=== PATIENT | female | born 1935 | race Caucasian/White ===

== ENCOUNTER 2017-10-19 21:03 | Emergency (ER) | payer MEDICARE ==
[2017-10-19] MEDS ORDERED: Ketorolac 30 MG/ML SDV IVPUSH ONE (21:07)
[2017-10-19] MEDS ORDERED: Sodium Chloride 0.9% 1,000 ML IV ONE (21:07)
[2017-10-19] MEDS ORDERED: Ondansetron 4 MG/2 ML SDV IVPUSH ONE (21:07)
--- NOTE | 2017-10-19 21:12 | EDM.PDOC ---
<Mae Coats - Last Filed: 10/19/17 23:34> ED HPI GENERAL MEDICAL PROBLEM - General Chief Complaint: Upper Extremity Injury/Pain Stated Complaint: DISLOCATED SHOULDER Time Seen by Provider: 10/19/17 21:07 - History of Present Illness INITIAL COMMENTS - FREE TEXT/NARRATIVE: This is Dr. Coats dictating an addendum note is having some care of this case at 10 PM. X-rays have been reviewed and the case was discussed with Dr. Mitchell who is her orthopedic surgeon on-call at 2230pm. Due to the patient's age reduction may be simple so I will try a small dose of morphine and attempt reduction. Procedure note: After the patient was notified of the procedure I just gave her 2 mg of morphine for pain and using traction is able to reduce the shoulder without complication. The patient was awake the entire time and interactive with us and had no complications. We will do a post reduction x-ray. Shoulder immobilizer was placed Post reduction x-ray shows reduction of the shoulder. I will refer her to Dr. Mitchell in the ortho clinic and advised her to wear the shoulder immobilizer until she is followed up. I will advise using ice to the area and over-the- counter pain meds. I will give her a few Tylenol with Codeine to use in case the pain is accelerated Impression: Right shoulder dislocation reduced - Related Data Allergies Allergy/AdvReac Type Severity Reaction Status Date / Time No Known Allergies Allergy Verified 10/19/17 21:12 Home Meds: Home Meds Apixaban [Eliquis] 0 mg PO BID 10/19/17 [History] Course - Vital Signs Last Recorded V/S: Last Vital Signs Temp 97.8 F 10/19/17 23:53 Pulse 73 10/19/17 23:53 Resp 17 10/19/17 23:53 BP 127/75 10/19/17 23:53 Pulse Ox 98 10/19/17 23:53 - Orders/Labs/Meds Orders: Active Orders 24 hr Category Date Time Status EKG Documentation Completion [RC] STAT Care 10/19/17 21:07 Active Chest 1V Frontal [CR] Stat Exams 10/19/17 21:07 Taken Shoulder 1V Rt [CR] Stat Exams 10/19/17 23:03 Taken Shoulder Comp Rt [CR] Stat Exams 10/19/17 21:06 Taken DME for Discharge [COMM] Stat Oth 10/19/17 23:09 Ordered Labs: Laboratory Tests 10/19/17 10/19/17 Range/Units 21:35 21:35 WBC 11.99 H (4.0-11.0) K/uL RBC 4.39 (4.30-5.90) M/uL Hgb 15.2 (12.0-16.0) g/dL Hct 43.3 (36.0-46.0) % MCV 98.6 H (80.0-98.0) fL MCH 34.6 H (27.0-32.0) pg MCHC 35.1 (31.0-37.0) g/dL RDW Std Deviation 47.8 (28.0-62.0) fl RDW Coeff of Jak 13 (11.0-15.0) % Plt Count 160 (150-400) K/uL MPV 10.30 (7.40-12.00) fL Neut % (Auto) 24.1 L (48.0-80.0) % Lymph % (Auto) 68.5 H (16.0-40.0) % Camas % (Auto) 6.3 (0.0-15.0) % Eos % (Auto) 0.8 (0.0-7.0) % Baso % (Auto) 0.3 (0.0-1.5) % Neut # (Auto) 2.9 (1.4-5.7) K/uL Lymph # (Auto) 8.2 H (0.6-2.4) K/uL Camas # (Auto) 0.8 (0.0-0.8) K/uL Eos # (Auto) 0.1 (0.0-0.7) K/uL Baso # (Auto) 0.0 (0.0-0.1) K/uL Nucleated RBC % 0.0 /100WBC Nucleated RBCs # 0 K/uL Sodium 139 (136-145) mmol/L Potassium 3.9 (3.5-5.1) mmol/L Chloride 100 (98-107) mmol/L Carbon Dioxide 28.0 (21.0-32.0) mmol/L BUN 19 H (7.0-18.0) mg/dL Creatinine 1.1 H (0.6-1.0) mg/dL Est Cr Clr Drug Dosing TNP Estimated GFR (MDRD) 47.3 ml/min Glucose 131 H (74-106) mg/dL Calcium 10.1 (8.5-10.1) mg/dL Total Bilirubin 0.5 (0.2-1.0) mg/dL AST 26 (15-37) IU/L ALT 31 (14-63) IU/L Alkaline Phosphatase 77 (46-116) U/L Troponin I < 0.050 (0.000-0.056) ng/mL Total Protein 7.5 (6.4-8.2) g/dL Albumin 3.7 (3.4-5.0) g/dL Globulin 3.8 H (2.0-3.5) g/dL Albumin/Globulin Ratio 1.0 L (1.3-2.8) Meds: Medications Discontinued Medications Generic Name Dose Route Start Last Admin Trade Name Freq PRN Reason Stop Dose Admin Sodium Chloride 1,000 mls @ 999 mls/hr 10/19/17 21:07 10/19/17 21:34 Normal Saline IV 10/19/17 22:07 999 mls/hr STAT ONE Administration Ketorolac Tromethamine 30 mg 10/19/17 21:07 10/19/17 21:35 Toradol IVPUSH 10/19/17 21:08 30 mg ONETIME ONE Administration Morphine Sulfate 2 mg 10/19/17 22:46 10/19/17 22:52 Morphine IVPUSH 10/19/17 22:47 2 mg ONETIME ONE Administration Ondansetron HCl 4 mg 10/19/17 21:07 10/19/17 21:35 Zofran IVPUSH 10/19/17 21:08 4 mg ONETIME ONE Administration Departure - Departure Time of Disposition: 23:31 Disposition: Home, Self-Care 01 Condition: Good Clinical Impression: Anterior shoulder dislocation Qualifiers: Encounter type: initial encounter Laterality: right Qualified Code(s): S43.014A - Anterior dislocation of right humerus, initial encounter - Discharge Information Instructions: Shoulder Dislocation Referrals: PCP,Unknown [Primary Care Provider] - Forms: ED Department Discharge Additional Instructions: The following information is given to patients seen in the emergency department who are being discharged to home. This information is to outline your options for follow-up care. We provide all patients seen in our emergency department with a follow-up referral. The need for follow-up, as well as the timing and circumstances, are variable depending upon the specifics of your emergency department visit. If you don't have a primary care physician on staff, we will provide you with a referral. We always advise you to contact your personal physician following an emergency department visit to inform them of the circumstance of the visit and for follow-up with them and/or the need for any referrals to a consulting specialist. The emergency department will also refer you to a specialist when appropriate. This referral assures that you have the opportunity for followup care with a specialist. All of these measure are taken in an effort to provide you with optimal care, which includes your followup. Under all circumstances we always encourage you to contact your private physician who remains a resource for coordinating your care. When calling for followup care, please make the office aware that this follow-up is from your recent emergency room visit. If for any reason you are refused follow-up, please contact the [facility] emergency department at and ask to speak to the emergency department charge nurse. [facility]--[place] [address] Please wear immobilizer until you're followed up in the ortho clinic. Place ice to the anterior part of your shoulder to reduce any swelling and we go the hand and move your fingers as much as possible to prevent swelling. Please use over- the-counter medications such as ibuprofen or Tylenol for pain and take the Tylenol with Codeine if you need it given to you via [employer] for any severe pain. Although the prescription says to take 1 pill every 4-6 hours please only take 1/2-1 pill every 6-8 hours if needed. Please only take that medication when you are at home. Call the clinic in the morning for a follow-up appointment and return to ER as needed and as discussed - My Orders Last 24 Hours: My Active Orders 10/19/17 21:06 Shoulder Comp Rt [CR] Stat 10/19/17 21:07 EKG Documentation Completion [RC] STAT Chest 1V Frontal [CR] Stat - Assessment/Plan Last 24 Hours: My Active Orders 10/19/17 21:06 Shoulder Comp Rt [CR] Stat 10/19/17 21:07 EKG Documentation Completion [RC] STAT Chest 1V Frontal [CR] Stat <Prieto Whitley E - Last Filed: 10/20/17 15:56> ED HPI GENERAL MEDICAL PROBLEM - General Source of Information: Reports: Patient History Limitations: Reports: No Limitations - History of Present Illness INITIAL COMMENTS - FREE TEXT/NARRATIVE: HISTORY AND PHYSICAL: History of present illness: Patient is an 82-year-old female who presents to the emergency room today with complaints of right shoulder pain after a fall. She states she was exiting [facility] when the pavement was uneven and had fallen against a glass door hitting her right shoulder. She denies hitting her head or any loss of consciousness. EMS was called to evaluate and transport patient to the emergency room. Patient has her arm in a position of comfort which is lifted up towards her side (as if she were to throw a baseball). She denies any vertigo, chills, chest pain, shortness of breath, abdominal pain, nausea, vomiting, diarrhea or constipation. Denies any headache or change in vision. Review of systems: As per history of present illness and below otherwise all systems reviewed and negative. Past medical history: As per history of present illness and as reviewed below otherwise noncontributory. Surgical history: As per history of present illness and as reviewed below otherwise noncontributory. Social history: No reported history of drug or alcohol abuse. Family history: As per history of present illness and as reviewed below otherwise noncontributory. Physical exam: General: Well-developed and well-nourished 82-year-old female. Alert and oriented. Nontoxic appearing and in no acute distress. HEENT: Atraumatic, normocephalic, pupils equal and reactive bilaterally, negative for conjunctival pallor or scleral icterus, mucous membranes moist, throat clear, neck supple, nontender, trachea midline. No drooling or trismus noted. No meningeal signs Lungs: Clear to auscultation, breath sounds equal bilaterally, chest nontender. Heart: S1S2, regular rate and rhythm without overt murmur Abdomen: Soft, nondistended, nontender. Negative for masses or hepatosplenomegaly. Negative for costovertebral tenderness. Pelvis: Stable nontender. Genitourinary: Deferred. Rectal: Deferred. Skin: Mildly diaphoretic. Otherwise intact, warm, dry. No lesions or rashes noted. Extremities: Unable to fully assess a range of motion of the right shoulder as the patient has pain with passive range of motion. She does have strong radial pulse. Capillary refill is less than 3 seconds. With palpation she has no tenderness to the hand, wrist, forearm, elbow or distal humerus. Does have tenderness with palpation to the proximal humerus and shoulder. Patient has her arm in a position of comfort which is lifted up towards her side (as if she were to throw a baseball). No clavicle deformities noted nor tenderness with palpation. Able to move all other extremities without difficulty or deficits. Neurovascular unremarkable. Neuro: Awake, alert, oriented. Cranial nerves II through XII unremarkable. Cerebellum unremarkable. Motor and sensory unremarkable throughout. Exam nonfocal. Notes: Due to the patient's age and physical assessment, will obtain routine lab work along with x-ray. Diagnostics: CBC, CMP, EKG, chest x-ray, troponin, x-ray right shoulder Therapeutics: IV fluid, Zofran, Toradol Impression: Right shoulder injury Plan: Per Dr Coats. Definitive disposition and diagnosis as appropriate pending reevaluation and review of above. Onset: Today Duration: Minutes: Location: Reports: Upper Extremity, Right right shoulder Pain Score (Numeric/FACES): 8 Review of Systems - Review of Systems Review Of Systems: ROS reveals no pertinent complaints other than HPI. ED EXAM, GENERAL - Physical Exam Exam: See Below (See dictation) Course - Vital Signs Last Recorded V/S: Last Vital Signs Temp 97.8 F 10/19/17 23:53 Pulse 73 10/19/17 23:53 Resp 17 10/19/17 23:53 BP 127/75 10/19/17 23:53 Pulse Ox 98 10/19/17 23:53 - Orders/Labs/Meds Labs: Laboratory Tests 10/19/17 10/19/17 Range/Units 21:35 21:35 WBC 11.99 H (4.0-11.0) K/uL RBC 4.39 (4.30-5.90) M/uL Hgb 15.2 (12.0-16.0) g/dL Hct 43.3 (36.0-46.0) % MCV 98.6 H (80.0-98.0) fL MCH 34.6 H (27.0-32.0) pg MCHC 35.1 (31.0-37.0) g/dL RDW Std Deviation 47.8 (28.0-62.0) fl RDW Coeff of Jak 13 (11.0-15.0) % Plt Count 160 (150-400) K/uL MPV 10.30 (7.40-12.00) fL Neut % (Auto) 24.1 L (48.0-80.0) % Lymph % (Auto) 68.5 H (16.0-40.0) % Camas % (Auto) 6.3 (0.0-15.0) % Eos % (Auto) 0.8 (0.0-7.0) % Baso % (Auto) 0.3 (0.0-1.5) % Neut # (Auto) 2.9 (1.4-5.7) K/uL Lymph # (Auto) 8.2 H (0.6-2.4) K/uL Camas # (Auto) 0.8 (0.0-0.8) K/uL Eos # (Auto) 0.1 (0.0-0.7) K/uL Baso # (Auto) 0.0 (0.0-0.1) K/uL Nucleated RBC % 0.0 /100WBC Nucleated RBCs # 0 K/uL Sodium 139 (136-145) mmol/L Potassium 3.9 (3.5-5.1) mmol/L Chloride 100 (98-107) mmol/L Carbon Dioxide 28.0 (21.0-32.0) mmol/L BUN 19 H (7.0-18.0) mg/dL Creatinine 1.1 H (0.6-1.0) mg/dL Est Cr Clr Drug Dosing TNP Estimated GFR (MDRD) 47.3 ml/min Glucose 131 H (74-106) mg/dL Calcium 10.1 (8.5-10.1) mg/dL Total Bilirubin 0.5 (0.2-1.0) mg/dL AST 26 (15-37) IU/L ALT 31 (14-63) IU/L Alkaline Phosphatase 77 (46-116) U/L Troponin I < 0.050 (0.000-0.056) ng/mL Total Protein 7.5 (6.4-8.2) g/dL Albumin 3.7 (3.4-5.0) g/dL Globulin 3.8 H (2.0-3.5) g/dL Albumin/Globulin Ratio 1.0 L (1.3-2.8) Meds: Medications Discontinued Medications Generic Name Dose Route Start Last Admin Trade Name Tongq PRN Reason Stop Dose Admin Sodium Chloride 1,000 mls @ 999 mls/hr 10/19/17 21:07 10/19/17 21:34 Normal Saline IV 10/19/17 22:07 999 mls/hr STAT ONE Administration Ketorolac Tromethamine 30 mg 10/19/17 21:07 10/19/17 21:35 Toradol IVPUSH 10/19/17 21:08 30 mg ONETIME ONE Administration Morphine Sulfate 2 mg 10/19/17 22:46 10/19/17 22:52 Morphine IVPUSH 10/19/17 22:47 2 mg ONETIME ONE Administration Ondansetron HCl 4 mg 10/19/17 21:07 10/19/17 21:35 Zofran IVPUSH 10/19/17 21:08 4 mg ONETIME ONE Administration
[2017-10-19 22:04] LABS: CHLORIDE,CL 100 mmol/L (98-107); SODIUM,NA 139 mmol/L (136-145)
[2017-10-19] MEDS ORDERED: Morphine 10 MG/ML Syringe IVPUSH ONE (22:46)
--- NOTE | 2017-10-21 12:39 | CR ---
EXAM DATE: 10/19/17 PATIENT'S AGE: 82 Patient: [facility] Facility: [place], [place] Site . Site : 1935 Study: XRay Chest [id number]/13/2018 10:27:09 PM Ordering Physician: Doctor Sue Final Report: INDICATION: Fall. COMPARISON: None. FINDINGS/IMPRESSION: Minimal linear atelectasis or scarring at the lateral right lung base. Lungs are otherwise clear and no acute intrathoracic abnormalities are demonstrated. Heart appears mildly enlarged. No pleural effusions or pulmonary vascular congestion. Atherosclerotic calcifications in the aortic arch. Surgical clips in the right axilla. Dislocation of the right shoulder, further evaluated by concurrently performed right shoulder radiographs. Dictated by Adama Frey MD @ 10/19/2017 11:02:12 PM Dictated by: Adama Frey MD @ 10/19/2017 23:02:22 (Electronic Signature) Report Signed by Proxy. RUBY
--- NOTE | 2017-10-21 12:39 | CR ---
EXAM DATE: 10/19/17 PATIENT'S AGE: 82 Patient: [facility] Facility: [place], [place] Site . Site : 1935 Study: XRay Shoulder Right [id number]/13/2018 10:26:49 PM Ordering Physician: Doctor Sue Final Report: INDICATION: Fall. COMPARISON: None. FINDINGS/IMPRESSION: Right shoulder dislocation with displacement of the humeral head inferiorly, anteriorly, and medially with respect to the glenoid. No fracture identified. 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 Surgical clips in the right axilla. Dictated by Adama Frey MD @ 10/19/2017 11:03:50 PM Dictated by: Adama Frey MD @ 10/19/2017 23:05:05 (Electronic Signature) Report Signed by Proxy. [email or web address]
--- NOTE | 2017-10-21 12:40 | CR ---
EXAM DATE: 10/19/17 PATIENT'S AGE: 82 Patient: [facility] Facility: [place], [place] Site . Site : 1935 Study: XRay Shoulder Right [id number]/13/2018 11:28:49 PM Ordering Physician: Doctor Sue Final Report: HISTORY: Post reduction. TECHNIQUE: One view of the shoulder obtained portably. COMPARISON: 10/19/2017. FINDINGS: The previously seen inferior shoulder dislocation has been reduced. The glenohumeral joint alignment overall is not optimally evaluated on this portable radiograph and an element of either anterior or posterior malalignment could still be present. If clinically indicated, an axillary view would allow better determination of the alignment. IMPRESSION: Reduction in previously seen inferior shoulder dislocation. The anterior/ posterior alignment of the humeral head with respect to the glenoid is not optimally determined by this single view. An axillary view could be performed for better determination of alignment if clinically indicated. Dictated by Pavan Cohen MD @ 10/19/2017 11:33:15 PM Dictated by: Pavan Cohen MD @ 10/19/2017 23:33:22 (Electronic Signature) Report Signed by Proxy. RUBY
== END 2017-10-19 23:58 | disposition home or self-care (01) ==
LOC: MW.ED 21:03
DX: S43.014A Anterior dislocation of right humerus, initial encounter (principal); W19.XXXA Unspecified fall, initial encounter
CPT/HCPCS: 23650; 36415; 71045; 73020; 73030; 80053; 84484; 85025; 93005; 96361; 96374; 96375; 99284; J1885; J2270; J2405; J7040